=== PATIENT | female | born 1990 | race Caucasian/White ===

== ENCOUNTER 2021-09-20 23:23 | Emergency (ER) | payer OTHER ==
[2021-09-20 23:35] VITALS: O2SAT 96
[2021-09-20] MEDS ORDERED: BENADRYL 25 MG CAPSULE PO ONE (23:42)
[2021-09-20] MEDS ORDERED: DELTASONE 20 MG PO STA (23:43)
[2021-09-20] MEDS ORDERED: TYLENOL 325 MG PO ONE (23:43)
[2021-09-20] MEDS ORDERED: DELTASONE 20 MG ONE (23:46)
[2021-09-20] MEDS ORDERED: TYLENOL 325 MG ONE (23:47)
[2021-09-20] MEDS ORDERED: BENADRYL 25 MG CAPSULE ONE (23:47)
--- NOTE | 2021-09-21 00:22 | ERPHSYRPT ---
- History of Present Illness Time Seen by Provider: 09/20/21 23:35 Source: patient Exam Limitations: no limitations Patient Subjective Stated Complaint: feeling "weird" since taking the new rx of cipro Triage Nursing Assessment: pt was started on Cipro 500mg po bid on 09/17/21 for UTI. Pt has taken 5 pills. Pt took a dose yesterday evening (09/19/21 at 1915) and started feeling "weird" after taking it. Pt did not take any of the cipro today but still feels "off". Pt c/o feeling tired, aching all over, and weak. Pt thinks its a reaction to the cipro. Pt does not have any rash or hives, denies any itching. Physician History: Patient is a 31-year-old female presents to our ED with complaints of feeling fatigued and body aches. Patient is attributing her symptoms to ciprofloxacin. Patient started Cipro 4 days ago for a urinary tract infection. Patient took 5 doses. Since starting Cipro patient has been experiencing her symptoms. Patient's UTI symptomology has resolved. We updated patient's allergy profile to reflect ciprofloxacin. Patient's symptoms are constant. Symptoms are mild to moderate in intensity. Patient did not take her Cipro dose today. No associated nausea or vomiting. No fever. No shortness of breath. No wheezing. No intraoral lesions. No rash. No hives. No pruritus. Symptoms are mild in intensity. It appears that Cipro was causing her symptoms. Patient otherwise feels well. She voices no other complaints or concerns at this time. Timing/Duration: today Severity: moderate Modifying Factors: Improves With: nothing Associated Symptoms: No vomiting, No abdominal pain, No shortness of breath, No cough (Generalized fatigue and weakness. Body aches), No chills, No fever, No headaches, No rash Allergies/Adverse Reactions: ciprofloxacin Adverse Reaction (Intermediate, Verified 09/20/21 23:34) Muscle Aches sulfamethoxazole [From Bactrim] Adverse Reaction (Intermediate, Verified 09/20/21 23:44) Vomiting trimethoprim [From Bactrim] Adverse Reaction (Intermediate, Verified 09/20/21 23:44) Vomiting Home Medications: Levothyroxine Sodium [Levothyroxine] 137 mcg PO WEEKLY 09/20/21 [History] Hx Tetanus, Diphtheria Vaccination/Date Given: No Hx Influenza Vaccination/Date Given: No Hx Pneumococcal Vaccination/Date Given: No Immunizations Up to Date: No Travel Risk - International Travel Have you traveled outside of the country in past 3 weeks: No - Coronavirus Screening Are you exhibiting any of the following symptoms?: No Close contact with a COVID-19 positive Pt in past 14-21 Days: No - Vaccine Status Have you recieved a Covid-19 vaccination: No - Review of Systems Constitutional: No Symptoms, No Fever, No Chills Eyes: No Symptoms Ears, Nose, & Throat: No Symptoms Respiratory: No Symptoms, No Cough, No Dyspnea Cardiac: No Symptoms, Orthopnea, No Chest Pain, No Edema, No Syncope Abdominal/Gastrointestinal: No Abdominal Pain, No Nausea, No Vomiting, No Diarrhea Genitourinary Symptoms: No Symptoms, No Dysuria Musculoskeletal: No Symptoms, No Back Pain, No Neck Pain Skin: No Symptoms, No Rash Neurological: No Symptoms, No Dizziness, No Focal Weakness, No Sensory Changes Psychological: No Symptoms Endocrine: No Symptoms Hematologic/Lymphatic: No Symptoms Immunological/Allergic: No Symptoms All Other Systems: Reviewed and Negative - Past Medical History Pertinent Past Medical History: Yes Neurological History: No Pertinent History ENT History: No Pertinent History Cardiac History: No Pertinent History Respiratory History: No Pertinent History Endocrine Medical History: Hypothyroidism Musculoskeletal History: No Pertinent History GI Medical History: No Pertinent History History: Other Psycho-Social History: No Pertinent History Female Reproductive Disorders: No Pertinent History Other Medical History: frequent UTI's since childhood - Past Surgical History Past Surgical History: Yes Neuro Surgical History: No Pertinent History Cardiac: No Pertinent History Respiratory: No Pertinent History Gastrointestinal: No Pertinent History Genitourinary: No Pertinent History Musculoskeletal: No Pertinent History Female Surgical History: No Pertinent History Other Surgical History: wisdom teeth - Social History Smoking Status: Never smoker Exposure to second hand smoke: No Drug Use: none Patient Lives Alone: No - Female History Hx Last Menstrual Period: 09/19/21 Hx Now: No - Nursing Vital Signs Nursing Vital Signs: Initial Vital Signs Temperature 99.0 F 09/20/21 23:31 Pulse Rate 96 H 09/20/21 23:31 Respiratory Rate 18 09/20/21 23:31 Blood Pressure 137/105 09/20/21 23:31 O2 Sat by Pulse Oximetry 96 09/20/21 23:31 Pain Scale Pain Intensity 4 - Physical Exam General Appearance: no apparent distress, alert Eye Exam: PERRL/EOMI, eyes nml inspection Ears, Nose, Throat Exam: normal ENT inspection, TMs normal, pharynx normal, moist mucous membranes Neck Exam: normal inspection, non-tender, supple, full range of motion Respiratory Exam: normal breath sounds, lungs clear, airway intact, No respirato ry distress Cardiovascular Exam: regular rate/rhythm, normal heart sounds, normal peripheral pulses Gastrointestinal/Abdomen Exam: soft, normal bowel sounds, No tenderness, No mass Back Exam: normal inspection, normal range of motion, No CVA tenderness, No vertebral tenderness Extremity Exam: normal inspection, normal range of motion, pelvis stable Neurologic Exam: alert, oriented x 3, cooperative, normal mood/affect, nml cerebellar function, nml station & gait, sensation nml, No motor deficits Skin Exam: normal color, warm, dry, No rash Lymphatic Exam: No adenopathy SpO2 Interpretation: normal SpO2: 96 O2 Delivery: Room Air - Course Nursing assessment & vital signs reviewed: Yes Ordered Tests: Medication Summary Discontinued Medications Generic Name Dose Route Start Last Admin Trade Name Mehreen PRN Reason Stop Dose Admin Acetaminophen 975 mg 09/20/21 23:43 09/20/21 23:47 Acetaminophen 325 Mg Tablet PO 09/20/21 23:44 975 mg STAT ONE Administration Acetaminophen Confirm 09/20/21 23:47 Acetaminophen 325 Mg Tablet Administered 09/20/21 23:48 Dose 975 mg .ROUTE .STK-MED ONE Diphenhydramine HCl 25 mg 09/20/21 23:42 09/20/21 23:48 Diphenhydramine Hcl 25 Mg Capsule PO 09/20/21 23:43 25 mg STAT ONE Administration Diphenhydramine HCl Confirm 09/20/21 23:47 Diphenhydramine Hcl 25 Mg Capsule Administered 09/20/21 23:48 Dose 25 mg .ROUTE .STK-MED ONE Prednisone 40 mg 09/20/21 23:43 09/20/21 23:47 Prednisone 20 Mg Tablet PO 09/20/21 23:44 40 mg ONCE STA Administration Prednisone Confirm 09/20/21 23:46 Prednisone 20 Mg Tablet Administered 09/20/21 23:47 Dose 40 mg .ROUTE .STK-MED ONE - Progress Progress: improved Progress Note: Patient reassessed. She states she feels well. Her fatigue has resolved. Her body aches have improved but not completely resolved. Patient now requesting discharge. No indication for further work-up. Patient allergy profile updated to reflect ciprofloxacin. Patient agrees to follow-up with a primary care doctor within 48 hours for evaluation. She voices no other complaints or concerns at this time. Portions of this note were created with voice recognition technology. There may be grammatical, spelling, punctuation or sound alike errors 09/21/21 01:09 Counseled pt/family regarding: diagnosis, need for follow-up - Departure Departure Disposition: Home Clinical Impression: Adverse reaction to antibiotic Condition: Stable Critical Care Time: No Referrals: DOCTOR,NO FAMILY [Primary Care Provider] - Follow up/PCP as directed ROSA MATIAS MD [ACTIVE STAFF] - Follow up/PCP as directed Additional Instructions: Discharge/Care Plan RALF MERCEDES was seen on 09/21/21 in the Emergency Room. The patient was counseled regarding Diagnosis,Lab results, Imaging studies, need for follow up and when to return to the Emergency Room. Prescriptions given: Discharge Note I have spoken with the patient and/or caregivers. I have explained the patient's condition, diagnosis and treatment plan based on the information available to me at this time. I have answered the patient's and/or caregiver's questions and addressed any concerns. The patient and/or caregivers have as good understanding of the patient's diagnosis, condition and treatment plan as can be expected at this point. The vital signs have been stable. The patient's condition is stable and appropriate for discharge from the emergency department. The patient will pursue further outpatient evaluation with the primary care physician or other designated or consulting physician as outlined in the discharge instructions. The patient and/or caregivers are agreeable to this plan of care and follow-up instructions have been explained in detail. The patient and/or caregivers have received these instruction. The patient/and or caregivers are aware that any significant change in condition or worsening of symptoms should prompt an immediate return to this or the closest emergency department or call 911.
[2021-09-21 01:16] VITALS: BP 112/88; PULSE 82
== END 2021-09-21 01:19 | disposition home or self-care (01) ==
LOC: ED 23:23
DX: M79.10 Myalgia, unspecified site (principal); R53.83 Other fatigue; T36.8X5A Adverse effect of other systemic antibiotics, initial encounter; Z28.310 Unvaccinated for COVID-19
CPT/HCPCS: 99283; A9270-GY